=== PATIENT | female | born 1990 | race Caucasian/White ===

== ENCOUNTER 2017-01-24 16:16 | Emergency (ER) | END 2017-01-24 19:13 | disposition home or self-care (01) | DX: S00.33XA Contusion of nose, initial encounter (principal); W50.0XXA Accidental hit or strike by another person, initial encounter; Y92.9 Unspecified place or not applicable ==

== ENCOUNTER 2018-04-21 10:41 | Emergency (ER) | END 2018-04-21 13:00 | disposition home or self-care (01) ==

== ENCOUNTER 2018-06-20 09:10 | Emergency (ER) | END 2018-06-20 10:40 | disposition home or self-care (01) ==

== ENCOUNTER 2018-08-22 07:31 | Outpatient (CLI) | END 2018-08-22 09:35 | disposition home or self-care (01) ==

== ENCOUNTER 2018-09-04 07:30 | Inpatient (IN) | END 2018-09-06 14:45 | disposition home or self-care (01) | DRG 833 ==

== ENCOUNTER 2018-10-03 14:08 | Outpatient (CLI) | END 2018-10-03 15:30 | disposition home or self-care (01) ==

== ENCOUNTER 2018-10-06 17:15 | Outpatient (CLI) | END 2018-10-06 19:20 | disposition home or self-care (01) ==

== ENCOUNTER 2018-10-09 17:54 | Outpatient (CLI) | END 2018-10-09 19:03 | disposition home or self-care (01) ==

== ENCOUNTER 2018-10-12 17:21 | Outpatient (CLI) | END 2018-10-12 18:55 | disposition home or self-care (01) ==

== ENCOUNTER 2018-10-16 17:23 | Outpatient (CLI) | END 2018-10-16 18:30 | disposition home or self-care (01) ==

== ENCOUNTER 2018-10-24 16:13 | Outpatient (CLI) | END 2018-10-24 18:40 | disposition home or self-care (01) ==

== ENCOUNTER 2018-10-27 07:42 | Inpatient (IN) | END 2018-10-29 17:29 | disposition home or self-care (01) | DRG 807 ==